=== PATIENT | male | born 1945 | race Caucasian/White ===

== ENCOUNTER 2022-08-29 18:16 | Inpatient (IN) | payer MEDICARE ==
[2022-08-29 19:24] LABS: HEMATOCRIT 41.5 % (38.4-49.7); HEMOGLOBIN 14.5 g/dL (12.9-16.9); MEAN CORPUSCULAR HEMOGLOBIN 28.7 pg (31.6-35.5); MEAN CORPUSCULAR HGB CONC 34.9 g/dL (31.6-35.5); NEUTROPHILS PERCENT AUTO 48.9 % (40.0-78.1); PLATELET COUNT,PLT 132 K/uL (130-375); RED BLOOD CELL COUNT 5.06 M/uL (4.14-5.76); WHITE BLOOD CELL COUNT,WBC 9.3 K/uL (3.2-11.0)
[2022-08-29 19:25] LABS: BASOPHILS ABSOLUTE AUTO 0.08 K/uL (0.00-0.10); BASOPHILS PERCENT AUTO 0.9 % (0.1-1.3); EOSINOPHILS ABSOLUTE AUTO 0.06 K/uL (0.00-0.40); EOSINOPHILS PERCENT AUTO 0.6 % (0.0-5.4); IMMATURE GRAN ABSOLUTE AUTO 0.05 K/uL (0.00-0.23); IMMATURE GRAN PERCENT AUTO 0.5 % (0.0-0.7); LYMPHOCYTES ABSOLUTE AUTO 4.05 K/uL (0.8-3.3); LYMPHOCYTES PERCENT AUTO 43.5 % (11.4-47.7); MONOCYTES ABSOLUTE AUTO 0.52 K/uL (0.20-0.90); MONOCYTES PERCENT AUTO 5.6 % (3.3-12.6); NEUTROPHILS ABSOLUTE AUTO 4.55 K/uL (1.0-7.6)
[2022-08-29 19:45] LABS: A/G RATIO 0.8 (1.2-2.2); ALANINE AMINOTRANSFERASE,ALT 93 U/L (12-78); ALBUMIN 2.8 g/dL (3.4-5.0); ALKALINE PHOSPHATASE 83 U/L (46-116); ASPARTATE AMNIOTRANSFERASE,AST 66 U/L (15-37); BILIRUBIN TOTAL 0.5 mg/dL (0.2-1.0); BLOOD UREA NITROGEN,BUN 54 mg/dL (7-18); CALCIUM 8.8 mg/dL (8.5-10.1); CARBON DIOXIDE,CO2 27 mmol/L (21-32); CHLORIDE,CL 106 mmol/L (100-108); CREATININE 1.6 mg/dL (0.8-1.3); EST CRCL DRUG DOSING (CG) 36.72 mL/min; ESTIMATED GFR 44 mL/min (>60); GLUCOSE RANDOM 214 mg/dL (74-106); POTASSIUM,K 3.5 mmol/L (3.6-5.2); PROTEIN TOTAL,TP 6.4 g/dL (6.4-8.2); SODIUM,NA 141 mmol/L (140-148)
[2022-08-29 19:46] LABS: ANION GAP 11.5 mmol/L (5.0-14.0)
[2022-08-29] MEDS ORDERED: LORazepam 2 MG/ML SDV IM ONE (20:10)
[2022-08-29] MEDS ORDERED: LORazepam 2 MG/ML SDV ONE (20:11)
[2022-08-29] MEDS ORDERED: levETIRAcetam in NaCl (iso-os) 1,500 MG in Premix Bag 100 BAG IV ONE ×2 (20:12)
[2022-08-29] MEDS ORDERED: Sodium Chloride 0.9% 10 ML Syringe FLUSH PRN (20:12)
[2022-08-29] MEDS ORDERED: Lactated Ringers 1,000 ML IV ONE (20:31)
[2022-08-29 21:19] LABS: APPEARANCE,URINE TURBID (CLEAR); BILIRUBIN,URINE NEGATIVE (NEGATIVE); COLOR,URINE YELLOW (YELLOW); GLUCOSE,URINE NEGATIVE (NEGATIVE); KETONES,URINE NEGATIVE (NEGATIVE); LEUKOCYTE ESTERASE,URINE NEGATIVE (NEGATIVE); NITRITE,URINE NEGATIVE (NEGATIVE); OCCULT BLOOD,URINE TRACE-INTACT (NEGATIVE); PROTEIN,URINE 30 mg/dL (NEGATIVE); UROBILINOGEN,URINE 0.2 EU/dL (0.2-1.0)
[2022-08-29 21:36] LABS: BACTERIA,URINE MODERATE
[2022-08-29 21:39] LABS: AMORPHOUS SEDIMENT,URINE PACKED
[2022-08-29] MEDS ORDERED: Ondansetron 4 MG Tab.DIS PO PRN (23:19)
[2022-08-29] MEDS ORDERED: Magnesium Hydroxide 400 MG/5 ML Susp 30 ML Cup PO PRN (23:19)
[2022-08-29] MEDS ORDERED: Ondansetron 4 MG/2 ML SDV IV PRN (23:19)
[2022-08-29] MEDS ORDERED: Acetaminophen 325 MG Tab PO PRN (23:19)
[2022-08-29] MEDS ORDERED: Sennosides/Docusate Sodium 50-8.6 MG Tab PO PRN (23:19)
[2022-08-29] MEDS: Haloperidol Lactate 5 MG/ML SDV IVPUSH PRN (23:40)
[2022-08-29] MEDS: Nicotine 14 MG/24 Hr Patch TRDERM SCH (23:43)
[2022-08-29] MEDS: Enoxaparin 40 MG/0.4 ML Syringe SUBCUT SCH (23:43)
[2022-08-29] MEDS: Sodium Chloride 0.9% 1,000 ML IV SCH (23:44)
[2022-08-30 05:18] LABS: HEMATOCRIT 36.8 % (38.4-49.7); HEMOGLOBIN 12.8 g/dL (12.9-16.9); MEAN CORPUSCULAR HEMOGLOBIN 28.6 pg (31.6-35.5); MEAN CORPUSCULAR HGB CONC 34.8 g/dL (31.6-35.5); MEAN CORPUSCULAR VOLUME 82.1 fL (81.4-99.0); PLATELET COUNT,PLT 139 K/uL (130-375); RED BLOOD CELL COUNT 4.48 M/uL (4.14-5.76); WHITE BLOOD CELL COUNT,WBC 11.4 K/uL (3.2-11.0)
[2022-08-30 05:32] LABS: CALCIUM 8.3 mg/dL (8.5-10.1); CREATININE 1.3 mg/dL (0.8-1.3); EST CRCL DRUG DOSING (CG) 45.08 mL/min; POTASSIUM,K 3.6 mmol/L (3.6-5.2)
[2022-08-30 05:34] LABS: BAND ABSOLUTE MAN 0.23 K/uL; BAND PERCENT MAN 2 % (5-11); LYMPHOCYTES ABSOLUTE MAN 5.93 K/uL (0.8-3.3); MONOCYTES PERCENT MAN 7 % (2-6); NEUTROPHILS ABSOLUTE MAN 4.45 K/uL (1.0-7.6); SEG NEUTROPHILS PERCENT MAN 39 % (36-66)
[2022-08-30 05:35] LABS: LYMPHOCYTES PERCENT MAN 52 % (24-44)
[2022-08-30 05:44] LABS: ANION GAP 10.6 mmol/L (5.0-14.0)
[2022-08-30] MEDS: Nystatin Topical Powder 15 GM Bottle TOP SCH ×5 (06:11→21:48)
[2022-08-30] MEDS: levETIRAcetam 250 MG Tab PO SCH ×2 (08:00→20:26)
[2022-08-30] MEDS: Nicotine 14 MG/24 Hr Patch TRDERM SCH (08:06)
[2022-08-30 10:18] LABS: PHOSPHORUS 3.3 mg/dL (2.5-4.9); TSH ULTRASENSITIVE 1.555 uIU/mL (0.358-3.740)
[2022-08-30] MEDS: Sodium Chloride 0.9% 1,000 ML IV SCH (20:21)
[2022-08-30 20:24] LABS: APPEARANCE,URINE SLIGHTLY CLOUDY (CLEAR); BILIRUBIN,URINE NEGATIVE (NEGATIVE); COLOR,URINE YELLOW (YELLOW); GLUCOSE,URINE NEGATIVE (NEGATIVE); KETONES,URINE NEGATIVE (NEGATIVE); LEUKOCYTE ESTERASE,URINE SMALL (NEGATIVE); NITRITE,URINE NEGATIVE (NEGATIVE); OCCULT BLOOD,URINE TRACE-INTACT (NEGATIVE); PH,URINE 5.5 (5.0-8.0); PROTEIN,URINE TRACE mg/dL (NEGATIVE)
[2022-08-30] MEDS: Melatonin 3 MG Tab PO SCH (20:26)
[2022-08-30 20:32] LABS: AMORPHOUS SEDIMENT,URINE RARE; BACTERIA,URINE MANY; EPITHELIAL CELLS,URINE FEW; MUCUS,URINE FEW; RBC,URINE 0-5 (0-5); WBC,URINE 30-40 (0-5)
[2022-08-30] MEDS: Haloperidol Lactate 5 MG/ML SDV IVPUSH PRN (21:49)
[2022-08-30] MEDS: Enoxaparin 40 MG/0.4 ML Syringe SUBCUT SCH (22:22)
[2022-08-31] MEDS: Haloperidol Lactate 5 MG/ML SDV IVPUSH PRN ×3 (02:04→15:21)
[2022-08-31 05:07] LABS: A/G RATIO 0.8 (1.2-2.2); ALANINE AMINOTRANSFERASE,ALT 113 U/L (12-78); ALBUMIN 2.6 g/dL (3.4-5.0); ALKALINE PHOSPHATASE 84 U/L (46-116); ASPARTATE AMNIOTRANSFERASE,AST 82 U/L (15-37); BILIRUBIN TOTAL 0.7 mg/dL (0.2-1.0); BLOOD UREA NITROGEN,BUN 26 mg/dL (7-18); CALCIUM 8.3 mg/dL (8.5-10.1); CARBON DIOXIDE,CO2 27 mmol/L (21-32); CHLORIDE,CL 111 mmol/L (100-108); CREATININE 1.1 mg/dL (0.8-1.3); EST CRCL DRUG DOSING (CG) 53.28 mL/min; ESTIMATED GFR 70 mL/min (>60); GLUCOSE RANDOM 149 mg/dL (74-106); POTASSIUM,K 3.5 mmol/L (3.6-5.2); PROTEIN TOTAL,TP 5.8 g/dL (6.4-8.2); SODIUM,NA 145 mmol/L (140-148)
[2022-08-31 05:10] LABS: ANION GAP 10.5 mmol/L (5.0-14.0)
[2022-08-31] MEDS: Nystatin Topical Powder 15 GM Bottle TOP SCH ×4 (07:36→23:58)
[2022-08-31] MEDS: Nicotine 14 MG/24 Hr Patch TRDERM SCH (09:54)
[2022-08-31] MEDS: levETIRAcetam 250 MG Tab PO SCH ×2 (09:54→21:01)
[2022-08-31] MEDS ORDERED: Potassium Chloride 20 MEQ Tab.ER PO ONE (10:00)
[2022-08-31] MEDS: Melatonin 3 MG Tab PO SCH (21:01)
[2022-09-01] MEDS: Enoxaparin 40 MG/0.4 ML Syringe SUBCUT SCH
[2022-09-01 05:20] LABS: HEMATOCRIT 35.1 % (38.4-49.7); HEMOGLOBIN 12.3 g/dL (12.9-16.9); MEAN CORPUSCULAR HEMOGLOBIN 28.7 pg (31.6-35.5); MEAN CORPUSCULAR VOLUME 81.8 fL (81.4-99.0); RED BLOOD CELL COUNT 4.29 M/uL (4.14-5.76); WHITE BLOOD CELL COUNT,WBC 13.4 K/uL (3.2-11.0)
[2022-09-01] MEDS: Nystatin Topical Powder 15 GM Bottle TOP SCH ×3 (06:05→22:52)
[2022-09-01] MEDS: Nicotine 14 MG/24 Hr Patch TRDERM SCH (08:44)
[2022-09-01] MEDS: levETIRAcetam 250 MG Tab PO SCH ×2 (08:47→20:00)
[2022-09-01] MEDS ORDERED: QUEtiapine 25 MG Tab PO PRN (14:19)
[2022-09-01] MEDS: Melatonin 3 MG Tab PO SCH (20:00)
[2022-09-01] MEDS ORDERED: QUEtiapine 25 MG Tab PO SCH ×2 (21:00)
[2022-09-02] MEDS: Enoxaparin 40 MG/0.4 ML Syringe SUBCUT SCH (00:35)
[2022-09-02] MEDS: Nystatin Topical Powder 15 GM Bottle TOP SCH ×2 (06:01→09:34)
[2022-09-02 06:02] LABS: CALCIUM 8.7 mg/dL (8.5-10.1); EST CRCL DRUG DOSING (CG) 58.61 mL/min
[2022-09-02 08:43] LABS: HEMATOCRIT 37.9 % (38.4-49.7); HEMOGLOBIN 13.3 g/dL (12.9-16.9); MEAN CORPUSCULAR HEMOGLOBIN 28.7 pg (31.6-35.5); MEAN CORPUSCULAR HGB CONC 35.1 g/dL (31.6-35.5); MEAN CORPUSCULAR VOLUME 81.9 fL (81.4-99.0); RED BLOOD CELL COUNT 4.63 M/uL (4.14-5.76); WHITE BLOOD CELL COUNT,WBC 12.9 K/uL (3.2-11.0)
[2022-09-02] MEDS: levETIRAcetam 250 MG Tab PO SCH (09:22)
[2022-09-02] MEDS: Nicotine 14 MG/24 Hr Patch TRDERM SCH (09:23)
[2022-09-02] MEDS ORDERED: QUEtiapine 25 MG Tab PO SCH (21:00)
== END 2022-09-02 12:20 | DRG 884 ==
LOC: JP.ED 18:16 → JP.MS 22:37
PROVIDERS: ADMIT Internal Medicine; ATTEND Internal Medicine
DX: R56.9 Unspecified convulsions (principal); Z20.822 Contact with and (suspected) exposure to COVID-19; F01.C0 Vascular dementia, severe, without behavioral disturbance, psychotic disturbance, mood disturbance, and anxiety; F01.C3 Vascular dementia, severe, with mood disturbance; N17.9 Acute kidney failure, unspecified; E87.20 Acidosis, unspecified; I47.20 Ventricular tachycardia, unspecified; G40.909 Epilepsy, unspecified, not intractable, without status epilepticus; E86.0 Dehydration; F17.210 Nicotine dependence, cigarettes, uncomplicated; E87.6 Hypokalemia; I10 Essential (primary) hypertension; Z66 Do not resuscitate; Z79.899 Other long term (current) drug therapy; Z87.820 Personal history of traumatic brain injury
CPT/HCPCS: 36415; 51798; 71046; 71046-26; 80048; 80053; 81001; 83605; 83735; 84100; 84443; 85025; 85027; 87086; 96361; 96365; 96372; 97110-GP; 97116-GP; 97161-GP; 97165-GO; 99223; 99233; 99239; 99285; 99285-25; A9270-GY; J1630; J1650; J1953; J2060; J3490; J7030; J7120; U0002